=== PATIENT | male | born 1970 | race Caucasian/White ===

== ENCOUNTER 2022-01-18 21:36 | Emergency (ER) | payer MEDICAID ==
[~2022-01-18] VITALS: Ht 165.1 cm; Wt 63.5 kg
--- NOTE | 2022-01-18 22:18 | NUR ---
Patient states "I don't want any procedure done." Patient walked out of ER.
--- NOTE | 2022-01-18 22:20 | NUR ---
No procedure was done on patient such as EKG or lab draws.
--- NOTE | 2022-01-18 22:25 | NUR ---
Patient eloped from facility. ER physician notified.
== END 2022-01-18 22:25 | disposition left against medical advice (07) ==
LOC: ER 21:39
DX: Z53.29 Procedure and treatment not carried out because of patient's decision for other reasons (principal)
CPT/HCPCS: 93005